=== PATIENT | male | born 2000 | race Two or more races ===

== ENCOUNTER 2021-09-04 18:43 | Emergency (ER) | payer OTHER ==
[~2021-09-04] VITALS: Ht 175.3 cm; Wt 84.4 kg
[2021-09-04] MEDS ORDERED: PANADOL (19:38)
== END 2021-09-05 | disposition home or self-care (01) ==
LOC: ER 18:43 → EMR PED 18:43
DX: J98.8 Other specified respiratory disorders (principal); J32.9 Chronic sinusitis, unspecified; Z03.818 Encounter for observation for suspected exposure to other biological agents ruled out

== ENCOUNTER 2024-10-10 13:22 | Emergency (ER) | payer OTHER ==
[~2024-10-10] VITALS: Ht 175.3 cm; Wt 73.9 kg
[~2024-10-10 13:22] MED LIST: PANADOL
[2024-10-10] MEDS ORDERED: CEFTRIAXONE SODIUM 1,000 MG VIAL IM STA (16:36)
== END 2024-10-10 18:05 | disposition home or self-care (01) ==
LOC: ER 13:24
DX: J03.80 Acute tonsillitis due to other specified organisms (principal); Z88.6 Allergy status to analgesic agent

== ENCOUNTER 2025-01-06 20:08 | Emergency (ER) | payer OTHER ==
[~2025-01-06] VITALS: Ht 167.6 cm; Wt 79.4 kg
[2025-01-06 20:33] VITALS: BP 111/69; O2SAT 99
[2025-01-06] MEDS ORDERED: FAMOTIDINE/PF 20 MG in 0.9 % SODIUM CHLORIDE 8 ML IV PUSH STA (21:24)
[2025-01-06] MEDS ORDERED: MAG HYDROX/ALUMINUM HYD/SIMETH 30 ML BLIST.PACK PO ONE ×2 (21:30→21:51)
[2025-01-06] MEDS ORDERED: SUCRALFATE 1 G TABLET PO ONE (21:30)
[2025-01-06] MEDS ORDERED: METHYLPREDNISOLONE SOD SUCC 125 MG VIAL IV ONE (21:30)
[2025-01-06] MEDS ORDERED: METHYLPREDNISOLONE SOD SUCC 125 MG VIAL ONE (21:51)
[2025-01-06] MEDS ORDERED: FAMOTIDINE/PF 20 MG/2 ML VIAL ONE (21:51)
[2025-01-06 23:13] LABS: HEMATOCRIT 38.6 % (39.0-48.0); HEMOGLOBIN 13.2 g/dL (13-16.00); MEAN CELL VOLUME 84.5 fL (80.0-100.00); MEAN CORPUSCULAR HEMOGLOBIN 28.8 pg (27.00-32.0); MEAN CORPUSCULAR HGB CONC 34.1 g/dl (32.0-36.0); PLATELET COUNT 304 K/uL (150-450); RED BLOOD COUNT 4.57 M/uL (4.00-6.00); RED CELL DISTRIBUTION WIDTH 14.4 % (11.5-14.5)
[2025-01-07 00:11] LABS: ALBUMIN 3.6 gm/dL (3.4-5.0); BILIRUBIN TOTAL 0.49 mg/dL (0.3-1.2); CALCIUM 9.6 mg/dL (8.5-10.1); CREATININE SERUM 0.88 mg/dL (0.70-1.30); GFR 107.32; GLOBULINA 4.5 G/DL (2.4-3.5); POTASSIUM 3.87 mEq/L (3.5-5.1); TOTAL PROTEIN 8.1 gm/dL (6.4-8.2)
[2025-01-07] MEDS ORDERED: ALBUTEROL2.5 MG/3 M IH (03:52)
[2025-01-07] MEDS ORDERED: VENTOLIN HFA18 GM IH (03:52)
[2025-01-07] MEDS ORDERED: PEPCID40 MG PO (03:52)
== END 2025-01-07 03:59 ==
LOC: ER 20:11
PROVIDERS: General Practice
DX: K29.70 Gastritis, unspecified, without bleeding (principal); J06.9 Acute upper respiratory infection, unspecified; Z88.6 Allergy status to analgesic agent; Z20.822 Contact with and (suspected) exposure to COVID-19